=== PATIENT | female | born 1940 | race Caucasian/White ===

== ENCOUNTER 2016-08-21 18:22 | Emergency (ER) | payer MEDICARE ==
--- NOTE | ~2016-08-21 | ER ---
PATIENT'S NAME: JENISE TEMPLE [facility] AGE: 76 Y [address] ROOM: [place] [id number] LOCATION: ED ADMIT DATE: 08/21/2016 ER/Outpatient Report DISCHARGE DATE: 08/21/2016 FAMILY PHYSICIAN: Physician, Unknown ATTENDING PHYSICIAN: Everardo Ko Admission date and time documented in the medical record. I saw the patient at 1835 hours. CHIEF COMPLAINT: Nausea, vomiting, diarrhea. HISTORY OF PRESENT ILLNESS: The patient is a 76-year-old female who initially became ill this past Thursday around 0200 hours in the morning. Basically had lot of nausea and diarrhea. She had explosive diarrhea. No blood in her diarrhea. Had diarrhea on Thursday, Thursday, Thursday, and then it pretty much resolved until around 1700 this evening when she again had developed explosive diarrhea x3 prior to admission in the emergency room. Some nausea, but no vomiting. No blood in her stool. She had a trip to [place] and returned a week ago for about 2-3 days prior to her onset of her illness. She has had a temperature up to 100. No chills or sweats. She has not taken much orally today, either liquids or solids. She has some lower abdominal pain. No chest pain or shortness of breath. No back pain. No lightheadedness, dizziness, syncope, or near syncope. No fall or trauma. No headache or eyes, ears, nose, throat, neck, or spine pain. No joint or muscle swelling, redness, or pain. No skin eruptions or rash. No history of neuro changes, psych issues, or endocrine problems. HOME MEDICATIONS: See attached medication list. ALLERGIES: NONE. SOCIAL HISTORY: Nonsmoker. Occasional intake of alcohol. SIGNIFICANT PAST MEDICAL HISTORY: Diverticulosis, celiac disease, breast cancer, osteoporosis, and dyslipidemia. OPERATIONS: Right lumpectomy of the breast, radiation therapy, colonoscopy, esophagogastroduodenoscopy, and hysterectomy. PATIENT'S NAME: JENISE TEMPLE [facility] AGE: 76 Y [address] ROOM: [place] [id number] LOCATION: ED ADMIT DATE: 08/21/2016 ER/Outpatient Report DISCHARGE DATE: 08/21/2016 FAMILY PHYSICIAN: Physician, Unknown ATTENDING PHYSICIAN: Everardo Ko REVIEW OF SYSTEMS: All systems reviewed by me are negative with the exception of those discussed in the history of the present illness. PHYSICAL EXAMINATION: VITAL SIGNS: Temperature 98.3 tympanic, pulse 84, respirations 18, blood pressure 144/63, and O2 saturation on room air is 95%. HEAD: Normocephalic. EYES, EARS, NOSE, THROAT: Clear. Mucous membranes moist. NECK: Negative. SPINE: Negative. LUNGS: Clear. Good air flow. No rales, rhonchi, or wheezes. HEART: Regular. Pulses are palpable. No chest wall or ribcage pain to palpation. No deformity. ABDOMEN: Flat, soft. Tender in the lower abdomen. No true guarding or rigidity. No rebound tenderness. Bowel tones hyperactive. No organomegaly or abnormal mass palpable. No CVA tenderness. EXTREMITIES: Without peripheral edema, cyanosis, or deformity. NEUROVASCULAR: Intact. SKIN: Clear. No skin eruptions or rash. LABORATORY DATA: Urine showed 0 to 2 whites, rare reds, 2-5 epithelial cells, few bacteria, 1+ mucus per high-powered field, nitrites negative. Procalcitonin was 0.07. Lactate was 1.2. White count 6900, 70 segs, 20 lymphocytes, 9 monocytes, 1 eosinophil. Hemoglobin is 13.7, hematocrit 41.5, and platelet count is 218,000. CMS was normal except for low potassium 3.5, slightly elevated glucose 107. Amylase and lipase were normal. CPK was 58. Point of care cardiac enzymes were normal. CRP was elevated at 12.60. Stool PCR was positive for Campylobacter E. coli and Cryptosporidium. Cultures and sensitivities are pending. CT scan of the abdomen and pelvis with IV contrast showed mild diffuse colonic wall thickening with more advanced thickening in the hepatic flexure consistent with colitis. CT scans read by Radiology, see dictated transcribed report. EMERGENCY DEPARTMENT COURSE: I did give the patient IV normal saline and fluids. IMPRESSION: Infective colitis with explosive diarrhea. PLAN: The patient dismissed home. Observation. Activity as tolerated. Clear liquid diet x24 hours and BRAT diet for 24 hours and regular diet as tolerated. Continue present home medications and care. Nitazoxanide 500 mg PATIENT'S NAME: WINDY JENISE J [facility] AGE: 76 Y [address] ROOM: [place] [id number] LOCATION: [facility] ADMIT DATE: 08/21/2016 ER/Outpatient Report DISCHARGE DATE: 08/21/2016 FAMILY PHYSICIAN: Physician, Unknown ATTENDING PHYSICIAN: Everardo Ko b.i.d. for 3 days. Z-Stanton, take as directed. Zofran as needed for nausea and vomiting. Follow up with personal physician in 7 to 10 days. Need to get scheduled for colonoscopy after this infective process has resolved. Discussion ensued with the patient concerning my findings and recommendations, she understands. MD ALEJANDRO HAGAN/modl /[id number] d: 08/22/16 0121 t: 08/22/16 1809, OUTPATIENT REPORT
[2016-08-21 19:11] LABS: BASOPHIL % 0.4 %; EOSINOPHIL # 0.1 K/uL (0.0-0.5); EOSINOPHIL % 0.7 %; HEMATOCRIT 41.5 % (33.0-46.0); HEMOGLOBIN 13.7 g/dL (10.0-15.0); IMMATURE GRANULOCYTE % 0.6 %; LYMPHOCYTE # 1.4 K/uL (0.8-4.0); LYMPHOCYTE % 19.8 %; MCH 29.7 pg (27.0-34.0); MCV 89.8 fl (83.0-98.0); MONOCYTE # 0.6 K/uL (0.0-1.0); MONOCYTE % 8.7 %; MPV 10.7 fl (9.4-12.4); NEUTROPHIL # (ANC) 4.8 K/uL (1.8-7.8); NEUTROPHIL % 69.8 %; NRBC % 0 /100WBC (0-0.00); PLATELET COUNT 218 K/uL (150-450); RBC 4.62 M/uL (3.50-5.50); WBC 6.9 K/uL (4.0-11.0)
[2016-08-21 19:25] LABS: ALBUMIN 3.3 gm/dL (3.5-5.0); ALK PHOS 70 IU/L (33-138); ALT 25 IU/L (12-78); ANION GAP 11.5 (10.0-19.0); AST 20 IU/L (10-40); BLOOD UREA NITROGEN 7 mg/dL (6-24); CALCIUM 8.6 mg/dL (8.5-10.5); CHLORIDE 100 mMol/L (96-110); CO2 29 mMol/L (22-32); CPK 54 IU/L (21-215); CREATININE 0.7 mg/dL (0.5-1.1); ESTIMATED GFR (MDRD EQUATION) > 60; POTASSIUM 3.5 mMol/L (3.7-5.1); SODIUM 137 mMol/L (135-145); TOTAL BILIRUBIN 0.6 mg/dL (0.0-1.5); TOTAL PROTEIN 7.8 g/dL (6.0-8.4)
[2016-08-21 20:00] LABS: BILIRUBIN URINE NEGATIVE (NEGATIVE); BLOOD URINE 25 /UL (NEGATIVE); COLOR URINE YELLOW (YELLOW); GLUCOSE URINE NEGATIVE (NEGATIVE); KETONE URINE NEGATIVE (NEGATIVE); LEUKOCYTES URINE 25 /UL (NEGATIVE); NITRITE URINE NEGATIVE (NEGATIVE); PROTEIN URINE NEGATIVE (NEGATIVE); SPEC GRAVITY URINE 1.005 (1.003-1.035); TURBIDITY URINE CLEAR (CLEAR); UROBILINOGEN URINE NORMAL (NORMAL)
[2016-08-21 20:11] LABS: WBC URINE 0-2 #/HPF (NEGATIVE)
[2016-08-21 20:14] LABS: BACTERIA URINE FEW (NEGATIVE); RBC URINE RARE #/HPF (NEGATIVE)
[2016-08-21 20:16] LABS: MUCUS URINE 1+ (NEGATIVE)
[2016-08-21 20:20] LABS: C DIFFICILE TOXIN A/B Not Detected (Not Detect); PLESIOMONAS SPECIES Not Detected (Not Detect)
[2016-08-21 20:21] LABS: ADENOVIRUS F 40/41 Not Detected (Not Detect); ASTROVIRUS Not Detected (Not Detect); CRYPTOSPORIDIUM DETECTED (Not Detect); CYCLOSPORA CAYETANENSIS Not Detected (Not Detect); E. COLI (EPEC) DETECTED (Not Detect); E. COLI (ETEC) DETECTED (Not Detect); E. COLI (STEC) Not Detected (Not Detect); ENTAMOEBA HISTOLYTICA Not Detected (Not Detect); GIARDIA LAMBLIA Not Detected (Not Detect); NOROVIRUS GI/ GII Not Detected (Not Detect); ROTAVIRUS A Not Detected (Not Detect); SALMONELLA SPECIES Not Detected (Not Detect); SAPOVIRUS Not Detected (Not Detect); SHIGELLA AND EIEC Not Detected (Not Detect); VIBRIO CHOLERAE Not Detected (Not Detect); VIBRIO SPECIES Not Detected (Not Detect); YERSINIA ENTEROCOLITICA Not Detected (Not Detect)
[2016-08-21 20:25] LABS: CAMPYLOBACTER SPECIES DETECTED (Not Detect)
== END 2016-08-21 21:31 | disposition disaster alternative care site (69) ==
LOC: GMED 18:22
PROVIDERS: Emergency Medicine
DX: A09 Infectious gastroenteritis and colitis, unspecified (principal); M81.0 Age-related osteoporosis without current pathological fracture; E78.5 Hyperlipidemia, unspecified; C50.911 Malignant neoplasm of unspecified site of right female breast; Z90.710 Acquired absence of both cervix and uterus; Z98.890 Other specified postprocedural states
CPT/HCPCS: J7030; Q9967

== ENCOUNTER → 2016-09-22 | Outpatient (CLI) | payer MEDICARE | LOC: LHSC 11:59 | DX: Z12.11 Encounter for screening for malignant neoplasm of colon (principal) ==